=== PATIENT | female | born 1945 | race Caucasian/White ===

== ENCOUNTER 2016-03-06 18:31 | Emergency (ER) | payer MEDICARE ==
[2016-03-06 18:42] VITALS: BMI 22.4
--- NOTE | 2016-03-06 19:13 | EDPRACDOC ---
- General Information Chief Complaint: Generalized Weakness Stated Complaint: EAR BLEEDING Time Seen by Provider: 03/06/16 18:59 Information Source: Patient Mode of Arrival: Car - History of Present Illness Onset: 1 HOUR HPI: Pt states she has abrasions/ulcers to l ear and was told by urgent care to wash area bid with soap and water then apply ointment. Tonight when pt was cleaning area she began bleeding from site. Pt states now bleeding is controlled. Pt c/o shaking feeling. Location: left ear Context: Reports: Spontaneous Onset Recently Treated Ear Infection: Reports: No Pain Severity: Reports: None Associated Signs & Symptoms: Reports: None ED Past Medical History - History Reviewed Yes Nurses notes reviewed and agree except as marked - Patient Medical History Cardiac History: Reports: Hypertension Respiratory History: Reports: COPD GI/ History: Reports: Gastroesophageal Reflux - Social Medical History Smoking Status: Current status unknown ETOH: None Substance Abuse: None EDM Review of Systems - Review of Systems Constitutional: No Symptoms Reported. negative: Fever, Chills, Weakness, Fatigue, Loss of Appetite Ears: Other (bleeding) Throat: No Symptoms Reported. negative: Pain, Swelling Nose: Congestion. negative: No Symptoms Reported, Abrasion, Bleeding, Discharge , Deformity, Ecchymosis, Injection, Laceration, Swelling, Tender Mouth: No Symptoms Reported. negative: Pain, Drooling Respiratory: No Symptoms Reported. negative: Cough, Brassy Cough, Barky Cough, Shortness of Breath, Wheezing, Hemoptysis Neurological: No Symptoms Reported. negative: Headache, Dizziness, Seizure, Numbness, Weakness, Speech Difficulty, Gait Difficulty Integumentary: Wound Allergic/Immunologic: No Symptoms Reported. negative: Hives, Itching Hematologic: No Symptoms Reported. negative: Lymphadenopathy, Easy Bruising, Easy Bleeding Psychiatric: No Symptoms Reported. negative: Anxiety, Depression, Hallucinations, Insomnia, Suicidal - Physical Exam Constitutional: Alert Oriented to: Time, Person, Place Last recorded Vital Signs: Last Vital Signs Temp 98.5 F 03/06/16 18:36 Pulse 108 03/06/16 18:36 Resp 20 03/06/16 18:36 BP 192/93 H 03/06/16 18:36 Pulse Ox 97 03/06/16 18:36 Oxygen Pulse Oxygen Saturation 97 O2 Device Room Air Oxygen Flow Rate Fraction of Inspired Oxygen ( FIO2) - HEENT Head: Normal ( normocephalic) Eye Exam: Normal (PERRL, EOMI, Sclera white) Oropharynx: Normal (Pharynx:Moist without exudate,Gums-no swelling) Tympanic Membrane: Normal ENT EAC: Blood, Other (abrasions x 3 to L ear. 2 on exterior pinna and 1 in inner canal) TMJ: Normal Nose: Congestion Neck: Normal (FROM, trachea at midline) - Respiratory/Cardiovascular Respiratory: Normal - CTA (BBS clear to auscultation without adventitious sounds ) Cardiovascular: Normal (RRR without murmur, gallop or rub) - Integumentary Skin: Normal, Warm, Dry Lymphatics: Normal (no adenopathy) - Neurologic Memory Impaired: Normal Motor Function: Normal (Normal tone, Pulses 2+ No cyanosis or edema, FROM) Mood Description: Normal Perception: Normal - Differential Diagnosis Abrasion - Departure Disposition: Home Condition: Good Final Diagnosis: Abrasion of left ear canal Qualifiers: Encounter type: initial encounter Qualified Code(s): S00.412A - Abrasion of left ear, initial encounter Abrasion of left pinna Qualifiers: Encounter type: initial encounter Qualified Code(s): S00.412A - Abrasion of left ear, initial encounter Instructions: Abrasion (ED) Education/Counseling Given To: Patient Education/Counseling Given Regarding: Diagnosis, Treatment, Follow Up Referrals: None,No Provider [Primary Care Provider] - One Week Duane Antoine DO [Staff Physician] - One Week
[2016-03-06 19:24] VITALS: BP 185/87; PULSE 100; TEMP 98.4
[2016-03-06 19:36] LABS: AUTOMATED BASOPHIL 0.9 % (0-2); AUTOMATED EOSINOPHIL 1.1 % (0-5); AUTOMATED LYMPH 15.4 % (17-44); AUTOMATED MONOCYTE 9.3 % (3-10); AUTOMATED NEUTROPHIL 73.3 % (45-76); MPV 6.3 fL (7.4-10.4)
[2016-03-06 19:46] LABS: PARTIAL THROMB. TIME 23.2 SEC (22-35)
== END 2016-03-06 20:38 | disposition home or self-care (01) ==
LOC: ED 18:31
DX: S00.412A Abrasion of left ear, initial encounter (principal); X58.XXXA Exposure to other specified factors, initial encounter; I10 Essential (primary) hypertension; J44.9 Chronic obstructive pulmonary disease, unspecified; K21.9 Gastro-esophageal reflux disease without esophagitis; Z79.899 Other long term (current) drug therapy
CPT/HCPCS: 36415; 85025; 85610; 85730; 99283